=== PATIENT | female | born 1980 | race African-American/Black ===

== ENCOUNTER 2016-09-06 12:19 | Emergency (ER) | payer MEDICAID ==
[~2016-09-06] VITALS: Ht 170.2 cm; Wt 109.0 kg
[2016-09-06] MEDS ORDERED: KETOROLAC 60MG/2ML VIAL IM ONE (13:15)
[2016-09-06] MEDS ORDERED: ACETAMINOPHEN WITH CODEINE 300/30MG TABLET PO ONE (15:30)
[2016-09-06 16:32] VITALS: BP 118/62
== END 2016-09-06 16:35 | disposition home or self-care (01) ==
LOC: ER 14:37
DX: R07.89 Other chest pain (principal); J45.909 Unspecified asthma, uncomplicated; Z88.8 Allergy status to other drugs, medicaments and biological substances
CPT/HCPCS: 71010; 81025; 93005; 96372; 99284; J1885

== ENCOUNTER 2017-04-29 00:12 | Emergency (ER) | payer MEDICAID ==
[~2017-04-29] VITALS: Ht 170.2 cm; Wt 150.0 kg
[2017-04-29] MEDS ORDERED: KETOROLAC 60MG/2ML VIAL IM ONE (04:15)
[2017-04-29 04:41] VITALS: BP 126/75
== END 2017-04-29 06:12 | disposition home or self-care (01) ==
LOC: ER 00:12
DX: M54.5 Low back pain (principal); J45.909 Unspecified asthma, uncomplicated; F17.210 Nicotine dependence, cigarettes, uncomplicated; R03.0 Elevated blood-pressure reading, without diagnosis of hypertension; Z88.8 Allergy status to other drugs, medicaments and biological substances
CPT/HCPCS: 72100; 96372; 99284; J1885